=== PATIENT | female | born 1940 | race Caucasian/White ===

== ENCOUNTER 2021-11-13 20:25 | Observation (INO) | payer MEDICARE ==
[2021-11-13 21:33] LABS: #Basophils 0.1 10x3/uL (0.0-0.2); #Eosinphils 0.2 10x3/uL (0.0-0.5); #Monocytes 0.6 10x3/uL (0.0-1.1); #Neutrophils 3.8 10x3/uL (1.5-8.4); %Basophils 0.9 % (0.0-2.0); %Lymphocytes 18.6 % (18.0-47.0); %Monocytes 10.2 % (0.0-10.0); %Neutrophils 65.9 % (40.0-75.0); Hemoglobin 10.6 g/dL (12.0-15.5); Mean Corpuscular HGB CONC 35.7 g/dL (32.0-36.0); Mean Corpuscular Hemoglobin 32.1 pg (27.0-33.0); Mean Platelet Volume 8.9 fl (7.4-10.4); Platelet Count 225 10x3/uL (150-450); RBC Distribution Width 13.5 % (11.5-14.5); White Blood Cell (WBC) Count 5.7 10x3/uL (3.5-10.5)
[2021-11-13 21:47] LABS: ALT (SGPT) 23 U/L (8-55); AST (SGOT) 58 U/L (5-34); Alkaline Phosphatase 91 U/L (40-110); Anion Gap 15 mmol/L (10-20); BUN (Urea Nitrogen) 26 mg/dL (9.8-20.1); Calc. Creatinine Clearance 0 mL/min (70-130); Calcium 9.1 mg/dL (7.8-10.44); Carbon Dioxide 25 mmol/L (23-31); Chloride 89 mmol/L (98-107); Globulin 2.3 g/dL (2.4-3.5); Glucose 98 mg/dL (83-110); Potassium 4.5 mmol/L (3.5-5.1); Protein, Total 6.3 g/dL (5.8-8.1); Sodium 124 mmol/L (136-145)
[2021-11-13 22:39] LABS: Bilirubin Neg (Negative); Blood, Urine Negative (Negative); Clarity Clear (Clear); Glucose, Urine (Dipstick) Normal (Negative); Ketone, Urine Negative (Negative); Leukocyte 100 (Negative); Nitrite Negative (Negative); Protein, Urine (Dipstick) Negative (Neg-Trace); Specific Gravity, Urine 1.005 (1.002-1.036); Urobilinogen Normal mg/dL (Less than 2)
[2021-11-13 23:15] LABS: Bacteria/HPF Rare-Few HPF (None Seen); Mucous/LPF Rare LPF (<2+); RBC/HPF None Seen HPF (0-3); Squamous Epithelial 0-3 HPF (0-3); Transitional Epithelial 0-3 HPF (None Seen); WBC/HPF 0-3 HPF (0-3)
[2021-11-13 23:21] LABS: Creatinine, Urine 62.23 mg/dL (47-110)
[2021-11-13 23:39] LABS: SARS-CoV-2 NAA Rapid Test Not Detected (NotDetected)
[2021-11-13] MEDS ORDERED: Sodium Chloride 0.9% 500 ML IV SCH (23:45)
[2021-11-13] MEDS ORDERED: Ondansetron PF 4 MG/2 ML Vial IVP PRN (23:54)
[2021-11-13] MEDS ORDERED: Acetaminophen 325 MG TAB PO PRN (23:54)
[2021-11-13] MEDS ORDERED: Senokot S 8.6-50 MG TAB PO PRN (23:54)
[2021-11-13] MEDS ORDERED: Calcium Carbonate 500 MG ChewTAB PO PRN (23:54)
[2021-11-13] MEDS ORDERED: Guaifenesin DM 100-10/5 ML UDCUP PO PRN (23:54)
[2021-11-14] MEDS ORDERED: Sodium Chloride 0.9% 500 ML IV SCH (00:15)
[2021-11-14 01:00] VITALS: BMI 27.5
[2021-11-14 04:51] LABS: Anion Gap 13 mmol/L (10-20); BUN (Urea Nitrogen) 23 mg/dL (9.8-20.1); CK (CPK) 1921 U/L (29-168); Calc. Creatinine Clearance 50 mL/min (70-130); Calcium 8.6 mg/dL (7.8-10.44); Carbon Dioxide 22 mmol/L (23-31); Chloride 96 mmol/L (98-107); Glucose 101 mg/dL (83-110); Potassium 4.4 mmol/L (3.5-5.1); Sodium 127 mmol/L (136-145)
[2021-11-14 05:04] LABS: Thyroid Stimulating Hormone 2.7038 uIU/mL (0.35-4.94)
[2021-11-14] MEDS: Sodium Chloride 0.9% 500 ML IV SCH ×2 (06:06→12:40)
[2021-11-14] MEDS ORDERED: Trospium 20 MG TAB ONE (07:55)
[2021-11-14] MEDS ORDERED: BIOTIN 10000 MCG PO SCH (09:00)
[2021-11-14] MEDS ORDERED: Multivitamin W/ Minerals 1 TAB PO SCH (09:00)
[2021-11-14] MEDS ORDERED: Hydroxychloroquine Sulfate 200 MG TAB PO SCH (09:00)
[2021-11-14] MEDS ORDERED: Calcium Carbonate 500 MG TAB PO SCH (09:00)
[2021-11-14] MEDS ORDERED: Ubidecarenone 50 MG CAP PO SCH (09:00)
[2021-11-14] MEDS ORDERED: Enoxaparin Sodium 40 MG/0.4 ML SYRINGE SC SCH (09:00)
[2021-11-14] MEDS ORDERED: Thyroid 60 MG TAB PO SCH (09:00)
[2021-11-14] MEDS ORDERED: Fish Oil 1,000 MG CAP PO SCH (09:00)
[2021-11-14] MEDS ORDERED: Trospium 20 MG TAB PO SCH (09:00)
[2021-11-14] MEDS ORDERED: Cholecalciferol 1,000 UNITS (25 MCG) TAB PO SCH (09:00)
[2021-11-14 12:53] LABS: Vitamin D, 25 Hydroxy 42.8 ng/ml (> 30.0)
[2021-11-14 12:57] LABS: Potassium, Urine 39.4 mmol/L
[2021-11-14 17:31] VITALS: BP 142/64; TEMP 97.9
[2021-11-14] MEDS ORDERED: Atenolol 25 MG TAB PO SCH (21:00)
== END 2021-11-14 19:30 | disposition home or self-care (01) ==
LOC: CSHERS 20:25 → CSHTELE 23:54 → UNDOADMOB 11-14 00:34
PROVIDERS: ADMIT Student in an Organized Health Care Education/Training Program; ATTEND Internal Medicine
DX: E87.1 Hypo-osmolality and hyponatremia (principal); M62.82 Rhabdomyolysis; I10 Essential (primary) hypertension; K21.9 Gastro-esophageal reflux disease without esophagitis; E03.9 Hypothyroidism, unspecified; Z88.0 Allergy status to penicillin; Z91.030 Bee allergy status; G89.29 Other chronic pain; M06.9 Rheumatoid arthritis, unspecified; N17.9 Acute kidney failure, unspecified
CPT/HCPCS: 70450; 71045; 72125; 80048; 80053; 82306; 82436; 82550; 82553; 82570; 82607; 82746; 82962; 83930; 83935; 84133; 84300 ×2; 84443; 84484; 85025; 93005; 93970; 97116; 97139 ×3; 97535; 99285; U0002; 36415; 36416; 81003; 81015; 96372; G0378; J1650; J7030